=== PATIENT | female | born 1995 | race Caucasian/White ===

== ENCOUNTER → 2022-05-14 | Outpatient (REF) | payer BC | LOC: M SFHCDERM 17:21 | PROVIDERS: ATTEND Nurse Practitioner Family | DX: D48.9 Neoplasm of uncertain behavior, unspecified (principal) ==

== ENCOUNTER → 2022-11-19 | Outpatient (REF) | payer BC | LOC: M SFHCDERM 16:38 | PROVIDERS: ATTEND Nurse Practitioner Family | DX: D49.2 Neoplasm of unspecified behavior of bone, soft tissue, and skin (principal) ==